=== PATIENT | male | born 1950 | race Caucasian/White ===

== ENCOUNTER 2023-01-01 16:58 | Emergency (ER) | payer MEDICARE ==
[2023-01-01 17:18] LABS: #Basophils 0.1 thou/uL (0.0-0.2); #Eosinphils 0.2 thou/uL (0.0-0.7); #Monocytes 0.9 thou/uL (0.11-0.59); #Neutrophils 5.7 thou/uL (1.40-6.50); %Basophils 0.9 % (0.0-1.0); %Eosinophils 2.5 % (0.0-10.0); %Lymphocytes 19.2 % (21.0-51.0); %Monocytes 10.7 % (0.0-10.0); %Neutrophils 66.5 % (42.0-75.0); Hematocrit 23.3 % (42.0-52.0); Hemoglobin 7.1 g/dL (14.0-18.0); Mean Corpuscular HGB CONC 30.5 g/dL (32.0-36.0); Mean Corpuscular Hemoglobin 26.9 pg (27.0-31.0); Mean Corpuscular Volume 88.3 fl (78.0-98.0); Mean Platelet Volume 9.1 fL (7.4-10.4); Platelet Count 369 10x3/uL (130-400); RBC Distribution Width 13.1 % (11.5-14.5); Red Blood Cell (RBC) Count 2.64 mill/uL (4.70-6.10); White Blood Cell (WBC) Count 8.5 10x3/uL (4.8-10.8)
[2023-01-01 17:46] LABS: ALT (SGPT) 20 U/L (8-55); AST (SGOT) 22 U/L (5-34); Albumin 3.2 g/dL (3.4-4.8); Alkaline Phosphatase 71 U/L (40-110); Anion Gap 10 mmol/L (10-20); BUN (Urea Nitrogen) 24 mg/dL (8.4-25.7); Bilirubin, Total Less than 0.2 mg/dL (0.2-1.2); Calc. Creatinine Clearance 0 mL/min (70-130); Calcium 7.8 mg/dL (7.8-10.44); Carbon Dioxide 23 mmol/L (23-31); Chloride 105 mmol/L (98-107); Estimated GFR 92; Globulin 1.6 g/dL (2.4-3.5); Glucose 114 mg/dL (80-115); Potassium 4.7 mmol/L (3.5-5.1); Protein, Total 4.8 g/dL (5.8-8.1); Sodium 133 mmol/L (136-145)
== END 2023-01-01 20:26 | disposition home or self-care (01) ==
LOC: ERS 16:58
DX: D64.9 Anemia, unspecified (principal); I10 Essential (primary) hypertension
CPT/HCPCS: 36430; 80053; 85025; 86850; 86900; 86901; 86920; P9016; 36415; 96360

== ENCOUNTER 2023-01-07 20:52 | Inpatient (IN) | payer MEDICARE ==
[2023-01-07] MEDS ORDERED: Pantoprazole 40 MG VIAL ONE ×2 (21:03→21:56)
[2023-01-07] MEDS ORDERED: Ondansetron PF 4 MG/2 ML Vial ONE (21:03)
[2023-01-07 21:10] LABS: #Monocytes 1.1 thou/uL (0.11-0.59); #Neutrophils 11.4 thou/uL (1.40-6.50); %Basophils 0.1 % (0.0-1.0); %Eosinophils 0.3 % (0.0-10.0); %Lymphocytes 12.4 % (21.0-51.0); %Monocytes 7.3 % (0.0-10.0); %Neutrophils 77.8 % (42.0-75.0); Hematocrit 12.8 % (42.0-52.0); Mean Corpuscular HGB CONC 29.7 g/dL (32.0-36.0); Mean Corpuscular Hemoglobin 27.3 pg (27.0-31.0); Mean Corpuscular Volume 92.1 fl (78.0-98.0); Platelet Count 238 10x3/uL (130-400); Red Blood Cell (RBC) Count 1.39 mill/uL (4.70-6.10); White Blood Cell (WBC) Count 14.6 10x3/uL (4.8-10.8)
[2023-01-07 21:23] LABS: Hemoglobin 3.8 g/dL (14.0-18.0)
[2023-01-07 21:30] LABS: INR-International Normal Ratio 1.2; Prothrombin Time 15.7 sec (12.0-14.7)
[2023-01-07 21:35] LABS: ALT (SGPT) 14 U/L (8-55); AST (SGOT) 14 U/L (5-34); Albumin 2.4 g/dL (3.4-4.8); Alkaline Phosphatase 43 U/L (40-110); Anion Gap 11 mmol/L (10-20); BUN (Urea Nitrogen) 42 mg/dL (8.4-25.7); Bilirubin, Total Less than 0.2 mg/dL (0.2-1.2); Calc. Creatinine Clearance 0 mL/min (70-130); Carbon Dioxide 18 mmol/L (23-31); Chloride 106 mmol/L (98-107); Estimated GFR 98; Globulin 1.1 g/dL (2.4-3.5); Glucose 164 mg/dL (80-115); Potassium 3.9 mmol/L (3.5-5.1); Protein, Total 3.5 g/dL (5.8-8.1); Sodium 131 mmol/L (136-145)
[2023-01-07 21:41] LABS: Calcium 6.7 mg/dL (7.8-10.44)
[2023-01-07] MEDS ORDERED: Acetaminophen 650 MG Suppository PR PRN (22:19)
[2023-01-07] MEDS ORDERED: Ondansetron ODT 4 MG TAB PO PRN (22:19)
[2023-01-07] MEDS ORDERED: Ondansetron PF 4 MG/2 ML Vial IVP PRN ×2 (22:19→22:30)
[2023-01-07] MEDS ORDERED: Acetaminophen 325 MG TAB PO PRN (22:30)
[2023-01-07] MEDS ORDERED: Ondansetron ODT 4 MG TAB SL PRN (22:30)
[2023-01-07] MEDS ORDERED: Pantoprazole 80 MG, Admixture Fee 1 EACH in Sodium Chloride 0.9% 100 ML IVPB SCH (22:30)
[2023-01-07] MEDS: Sodium Chloride 0.9% 1,000 ML IV SCH (23:45)
[2023-01-08 03:43] LABS: #Monocytes 1.2 thou/uL (0.11-0.59); #Neutrophils 15.5 thou/uL (1.40-6.50); %Basophils 0.2 % (0.0-1.0); %Eosinophils 0.1 % (0.0-10.0); %Lymphocytes 6.9 % (21.0-51.0); %Monocytes 6.6 % (0.0-10.0); %Neutrophils 85.4 % (42.0-75.0); Mean Corpuscular HGB CONC 33.1 g/dL (32.0-36.0); Mean Corpuscular Hemoglobin 27.9 pg (27.0-31.0); Platelet Count 177 10x3/uL (130-400); RBC Distribution Width 15.5 % (11.5-14.5); Red Blood Cell (RBC) Count 2.98 mill/uL (4.70-6.10); White Blood Cell (WBC) Count 18.1 10x3/uL (4.8-10.8)
[2023-01-08 04:01] LABS: Hemoglobin 8.3 g/dL (14.0-18.0)
[2023-01-08 04:02] LABS: Hematocrit 25.1 % (42.0-52.0); Mean Corpuscular Volume 84.2 fl (78.0-98.0)
[2023-01-08 04:04] LABS: Anion Gap 8 mmol/L (10-20); BUN (Urea Nitrogen) 34 mg/dL (8.4-25.7); Calc. Creatinine Clearance 85 mL/min (70-130); Carbon Dioxide 21 mmol/L (23-31); Chloride 109 mmol/L (98-107); Estimated GFR 103; Glucose 103 mg/dL (80-115); Potassium 4.2 mmol/L (3.5-5.1); Sodium 134 mmol/L (136-145)
[2023-01-08 04:08] LABS: Calcium 6.8 mg/dL (7.8-10.44)
[2023-01-08] MEDS ORDERED: Sodium Chloride 0.9% 500 ML IV SCH ×3 (05:45→12:00)
[2023-01-08 06:25] LABS: Hematocrit 21.8 % (42.0-52.0); Hemoglobin 7.3 g/dL (14.0-18.0)
[2023-01-08] MEDS ORDERED: PHENYLEPHRINE-NS 100 MCG/ML 10 ML SYRINGE ONE (07:45)
[2023-01-08] MEDS ORDERED: PROPOFOL 200 MG/20 ML VIAL ONE (07:45)
[2023-01-08] MEDS ORDERED: Succinylcholine 200 MG/10 ml SYRINGE FS ONE (07:45)
[2023-01-08] MEDS: Pantoprazole 40 MG VIAL IVP SCH ×2 (09:20→20:04)
[2023-01-08] MEDS: Sodium Chloride 0.9% 1,000 ML IV SCH ×2 (09:20→13:14)
[2023-01-08 11:48] LABS: Hematocrit 25.5 % (42.0-52.0); Hemoglobin 9.1 g/dL (14.0-18.0); Mean Corpuscular HGB CONC 35.7 g/dL (32.0-36.0); Mean Corpuscular Volume 84.2 fl (78.0-98.0); Mean Platelet Volume 10.1 fL (7.4-10.4); Platelet Count 158 10x3/uL (130-400); RBC Distribution Width 16.9 % (11.5-14.5); Red Blood Cell (RBC) Count 3.03 mill/uL (4.70-6.10); White Blood Cell (WBC) Count 20.2 10x3/uL (4.8-10.8)
[2023-01-08 14:50] LABS: Bilirubin Negative (Negative); Blood, Urine Moderate (Negative); Clarity Clear (Clear); Glucose, Urine (Dipstick) Negative (Negative); Ketone, Urine Negative (Negative); Leukocyte Negative (Negative); Nitrite Negative (Negative); Protein, Urine (Dipstick) Negative (Neg-Trace); Specific Gravity, Urine 1.028 (1.002-1.036); Urobilinogen 0.2 mg/dL (Less than 2)
[2023-01-08 15:09] LABS: CAUTI Indications for Culture Fever or rigors
[2023-01-08 15:10] LABS: Bacteria/HPF Rare-Few HPF (None Seen); Squamous Epithelial 0-3 HPF (0-3)
[2023-01-08 15:11] LABS: Urine Culture Reflex No No
[2023-01-09 03:57] LABS: #Basophils 0.1 thou/uL (0.0-0.2); #Eosinphils 0.3 thou/uL (0.0-0.7); #Monocytes 0.9 thou/uL (0.11-0.59); #Neutrophils 9.3 thou/uL (1.40-6.50); %Basophils 0.4 % (0.0-1.0); %Eosinophils 2.6 % (0.0-10.0); %Lymphocytes 8.8 % (21.0-51.0); %Monocytes 7.7 % (0.0-10.0); %Neutrophils 79.8 % (42.0-75.0); Hematocrit 23.4 % (42.0-52.0); Hemoglobin 7.5 g/dL (14.0-18.0); Mean Corpuscular HGB CONC 32.1 g/dL (32.0-36.0); Mean Corpuscular Hemoglobin 27.9 pg (27.0-31.0); Mean Platelet Volume 10.6 fL (7.4-10.4); Platelet Count 142 10x3/uL (130-400); RBC Distribution Width 17.3 % (11.5-14.5); Red Blood Cell (RBC) Count 2.69 mill/uL (4.70-6.10); White Blood Cell (WBC) Count 11.7 10x3/uL (4.8-10.8)
[2023-01-09 04:16] LABS: Anion Gap 6 mmol/L (10-20); BUN (Urea Nitrogen) 20 mg/dL (8.4-25.7); Calc. Creatinine Clearance 82 mL/min (70-130); Carbon Dioxide 20 mmol/L (23-31); Chloride 113 mmol/L (98-107); Estimated GFR 101; Glucose 99 mg/dL (80-115); Potassium 3.9 mmol/L (3.5-5.1); Sodium 135 mmol/L (136-145)
[2023-01-09 04:32] LABS: Calcium 6.8 mg/dL (7.8-10.44)
[2023-01-09] MEDS ORDERED: Calcium Chloride 1 GM/10 ML Abboject SYRINGE IVP SCH (04:45)
[2023-01-09] MEDS: Sodium Chloride 0.9% 1,000 ML IV SCH (04:50)
[2023-01-09] MEDS: Pantoprazole 40 MG VIAL IVP SCH (08:30)
[2023-01-09] MEDS ORDERED: CALCIUM GLUC 1 GM/NS 50 ML 1 GM in Premix 1 BAG IVPB SCH (08:45)
[2023-01-10 04:59] LABS: #Eosinphils 0.1 thou/uL (0.0-0.7); #Monocytes 0.6 thou/uL (0.11-0.59); #Neutrophils 7.7 thou/uL (1.40-6.50); %Basophils 0.3 % (0.0-1.0); %Lymphocytes 6.5 % (21.0-51.0); %Monocytes 6.5 % (0.0-10.0); Hematocrit 26.1 % (42.0-52.0); Hemoglobin 8.4 g/dL (14.0-18.0); Mean Corpuscular HGB CONC 32.2 g/dL (32.0-36.0); Mean Platelet Volume 10.8 fL (7.4-10.4); Platelet Count 172 10x3/uL (130-400); RBC Distribution Width 17.3 % (11.5-14.5); White Blood Cell (WBC) Count 9.1 10x3/uL (4.8-10.8)
[2023-01-10 07:25] LABS: BUN (Urea Nitrogen) 18 mg/dL (8.4-25.7); Calc. Creatinine Clearance 90 mL/min (70-130); Calcium 7.3 mg/dL (7.8-10.44); Carbon Dioxide 20 mmol/L (23-31); Chloride 109 mmol/L (98-107); Estimated GFR 101; Glucose 100 mg/dL (80-115); Potassium 3.7 mmol/L (3.5-5.1); Sodium 135 mmol/L (136-145)
[2023-01-10 08:37] LABS: Anion Gap 10 mmol/L (10-20)
[2023-01-10] MEDS ORDERED: Iopamidol-370 76% 500 ML MDV (1 ML CHARGE) ONE (10:03)
[2023-01-10] MEDS ORDERED: Lactated Ringer's 1,000 ML IV SCH (16:30)
[2023-01-10] MEDS ORDERED: Heparin 10,000 UNITS/ 10 ML VIAL SLOW IVP SCH (18:30)
[2023-01-10 18:56] LABS: Hematocrit 27.1 % (42.0-52.0); Hemoglobin 8.8 g/dL (14.0-18.0); Platelet Count 161 10x3/uL (130-400)
[2023-01-10] MEDS ORDERED: Calcium Gluc 4.6 MEQ/10 ML (100 MG/ML) SLOW IVP SCH (19:02)
[2023-01-10] MEDS: Heparin 25,000 units/D5W 500 ML IVPB SCH (19:52)
[2023-01-10] MEDS: Pantoprazole 40 MG VIAL IVP SCH (21:12)
[2023-01-10 22:12] LABS: Hematocrit 31.6 % (42.0-52.0); Hemoglobin 9.7 g/dL (14.0-18.0)
[2023-01-10] MEDS: Acetaminophen 325 MG TAB PO PRN (23:22)
[2023-01-11] MEDS ORDERED: Lactated Ringer's 500 ML IV SCH (02:15)
[2023-01-11] MEDS: Lactated Ringer's 1,000 ML IV SCH ×4 (02:18→18:30)
[2023-01-11] MEDS ORDERED: Heparin 10,000 UNITS/ 10 ML VIAL SLOW IVP SCH (08:45)
[2023-01-11 08:50] LABS: #Monocytes 0.5 thou/uL (0.11-0.59); #Neutrophils 8.5 thou/uL (1.40-6.50); %Basophils 0.3 % (0.0-1.0); %Eosinophils 0.2 % (0.0-10.0); %Lymphocytes 6.7 % (21.0-51.0); %Monocytes 5.3 % (0.0-10.0); %Neutrophils 86.5 % (42.0-75.0); Hematocrit 29.8 % (42.0-52.0); Hemoglobin 9.6 g/dL (14.0-18.0); Mean Corpuscular HGB CONC 32.2 g/dL (32.0-36.0); Mean Corpuscular Hemoglobin 28.2 pg (27.0-31.0); Mean Corpuscular Volume 87.4 fl (78.0-98.0); Mean Platelet Volume 11.2 fL (7.4-10.4); RBC Distribution Width 17.2 % (11.5-14.5); Red Blood Cell (RBC) Count 3.41 mill/uL (4.70-6.10); White Blood Cell (WBC) Count 9.8 10x3/uL (4.8-10.8)
[2023-01-11] MEDS ORDERED: FLU VACC QS2023(65UP)/MF59C/PF 60 MCG/0.5 ML SYRINGE IM ONE (09:00)
[2023-01-11] MEDS: Pantoprazole 40 MG VIAL IVP SCH ×2 (09:00→20:24)
[2023-01-11 09:18] LABS: Platelet Count 104 10x3/uL (130-400)
[2023-01-11 09:21] LABS: PTT 230.8 sec (22.9-36.1)
[2023-01-11 12:11] LABS: Anion Gap 11 mmol/L (10-20); BUN (Urea Nitrogen) 18 mg/dL (8.4-25.7); Calc. Creatinine Clearance 90 mL/min (70-130); Carbon Dioxide 21 mmol/L (23-31); Chloride 107 mmol/L (98-107); Estimated GFR 101; Glucose 108 mg/dL (80-115); Sodium 135 mmol/L (136-145)
[2023-01-11] MEDS: Acetaminophen 325 MG TAB PO PRN ×2 (12:55→20:23)
[2023-01-11] MEDS ORDERED: Calcium Gluconate 4.6 MEQ in Sodium Chloride 0.9% 100 ML IVPB SCH (13:55)
[2023-01-11] MEDS ORDERED: CALCIUM GLUC 1 GM/NS 50 ML 1 GM in Premix 1 BAG IVPB SCH (15:30)
[2023-01-11] MEDS: Heparin 25,000 units/D5W 500 ML IVPB SCH (18:30)
[2023-01-11] MEDS ORDERED: Ipratropium/Albuterol 3 ML NEB NEB PRN (18:42)
[2023-01-11] MEDS ORDERED: Morphine 2 MG/ML VIAL SLOW IVP PRN (18:43)
[2023-01-11 19:27] LABS: PTT 125.9 sec (22.9-36.1)
[2023-01-11] MEDS ORDERED: Vancomycin (BATCH) 1.25 GM in Premix 1 BAG IVPB SCH (21:30)
[2023-01-11] MEDS ORDERED: Cefepime 1 GM in Sodium Chloride 0.9% 100 ML IVPB SCH (22:00)
[2023-01-11] MEDS ORDERED: Vancomycin 1 GM in Premix 1 BAG IVPB SCH (22:00)
[2023-01-12 03:40] LABS: #Monocytes 0.3 thou/uL (0.11-0.59); #Neutrophils 3.8 thou/uL (1.40-6.50); %Basophils 0.6 % (0.0-1.0); %Eosinophils 0.4 % (0.0-10.0); %Lymphocytes 14.8 % (21.0-51.0); %Monocytes 5.5 % (0.0-10.0); %Neutrophils 77.3 % (42.0-75.0); Hematocrit 25.2 % (42.0-52.0); Hemoglobin 7.9 g/dL (14.0-18.0); Mean Corpuscular HGB CONC 31.3 g/dL (32.0-36.0); Mean Corpuscular Hemoglobin 27.7 pg (27.0-31.0); Mean Corpuscular Volume 88.4 fl (78.0-98.0); Mean Platelet Volume 10.9 fL (7.4-10.4); RBC Distribution Width 16.9 % (11.5-14.5); Red Blood Cell (RBC) Count 2.85 mill/uL (4.70-6.10); White Blood Cell (WBC) Count 4.9 10x3/uL (4.8-10.8)
[2023-01-12 03:56] LABS: Platelet Count 126 10x3/uL (130-400)
[2023-01-12 04:05] LABS: Anion Gap 10 mmol/L (10-20); BUN (Urea Nitrogen) 16 mg/dL (8.4-25.7); Calc. Creatinine Clearance 85 mL/min (70-130); Calcium 7.1 mg/dL (7.8-10.44); Carbon Dioxide 24 mmol/L (23-31); Chloride 107 mmol/L (98-107); Estimated GFR 99; Glucose 107 mg/dL (80-115); Potassium 3.9 mmol/L (3.5-5.1); Sodium 137 mmol/L (136-145)
[2023-01-12] MEDS: Cefepime 2 GM in Sodium Chloride 0.9% 100 ML IVPB SCH ×2 (09:25→22:51)
[2023-01-12] MEDS: Pantoprazole 40 MG VIAL IVP SCH ×2 (09:26→22:52)
[2023-01-12] MEDS: Vancomycin 1 GM in Premix 1 BAG IVPB SCH ×2 (09:26→22:51)
[2023-01-12] MEDS: Lactated Ringer's 1,000 ML IV SCH (09:31)
[2023-01-12] MEDS: Heparin 25,000 units/D5W 500 ML IVPB SCH (10:34)
[2023-01-12 18:49] LABS: Hematocrit 25.3 % (42.0-52.0); Hemoglobin 7.9 g/dL (14.0-18.0); Platelet Count 144 10x3/uL (130-400)
[2023-01-13 03:53] LABS: #Eosinphils 0.2 thou/uL (0.0-0.7); #Monocytes 0.6 thou/uL (0.11-0.59); #Neutrophils 3.4 thou/uL (1.40-6.50); %Basophils 0.6 % (0.0-1.0); %Eosinophils 3.6 % (0.0-10.0); %Lymphocytes 18.4 % (21.0-51.0); %Monocytes 10.9 % (0.0-10.0); Hematocrit 25.3 % (42.0-52.0); Mean Corpuscular HGB CONC 31.6 g/dL (32.0-36.0); Mean Corpuscular Hemoglobin 27.4 pg (27.0-31.0); Mean Corpuscular Volume 86.6 fl (78.0-98.0); Mean Platelet Volume 11.4 fL (7.4-10.4); Platelet Count 157 10x3/uL (130-400); RBC Distribution Width 16.5 % (11.5-14.5); Red Blood Cell (RBC) Count 2.92 mill/uL (4.70-6.10); White Blood Cell (WBC) Count 5.2 10x3/uL (4.8-10.8)
[2023-01-13 04:19] LABS: Anion Gap 9 mmol/L (10-20); BUN (Urea Nitrogen) 15 mg/dL (8.4-25.7); Calc. Creatinine Clearance 94 mL/min (70-130); Carbon Dioxide 24 mmol/L (23-31); Chloride 105 mmol/L (98-107); Estimated GFR 102; Glucose 108 mg/dL (80-115); Potassium 3.7 mmol/L (3.5-5.1); Sodium 134 mmol/L (136-145)
[2023-01-13 04:44] LABS: PTT 144.4 sec (22.9-36.1)
[2023-01-13] MEDS: Lactated Ringer's 1,000 ML IV SCH ×2 (06:06→17:01)
[2023-01-13] MEDS: Pantoprazole 40 MG VIAL IVP SCH ×2 (09:14→20:49)
[2023-01-13] MEDS: Cefepime 2 GM in Sodium Chloride 0.9% 100 ML IVPB SCH (09:14)
[2023-01-13 09:44] LABS: Vancomycin, Trough 11.4 ug/mL
[2023-01-13] MEDS: Vancomycin 1 GM in Premix 1 BAG IVPB SCH (11:13)
[2023-01-13] MEDS: Heparin 25,000 units/D5W 500 ML IVPB SCH (17:01)
[2023-01-14 02:24] LABS: Hemoglobin 7.7 g/dL (14.0-18.0); Mean Corpuscular HGB CONC 30.8 g/dL (32.0-36.0); Mean Corpuscular Hemoglobin 27.3 pg (27.0-31.0); Mean Corpuscular Volume 88.7 fl (78.0-98.0); Mean Platelet Volume 10.6 fL (7.4-10.4); Platelet Count 173 10x3/uL (130-400); RBC Distribution Width 16.3 % (11.5-14.5); Red Blood Cell (RBC) Count 2.82 mill/uL (4.70-6.10); White Blood Cell (WBC) Count 5.1 10x3/uL (4.8-10.8)
[2023-01-14 02:55] LABS: Delete Auto Diff?? YES; Manual Diff?? YES
[2023-01-14 02:57] LABS: Anion Gap 10 mmol/L (10-20); BUN (Urea Nitrogen) 15 mg/dL (8.4-25.7); Calcium 7.2 mg/dL (7.8-10.44); Carbon Dioxide 24 mmol/L (23-31); Chloride 108 mmol/L (98-107); Glucose 104 mg/dL (80-115); Potassium 3.8 mmol/L (3.5-5.1); Sodium 138 mmol/L (136-145)
[2023-01-14 03:08] LABS: Calc. Creatinine Clearance 91 mL/min (70-130); Estimated GFR 101
[2023-01-14 03:33] LABS: Anisocytosis SLIGHT = 6-15 cells HPF (0-5); Band 3 % (5-11); Burr Cells SLIGHT = 2-5 cells HPF (0-1); CellaVision Operator ID LAB.JMM; Elliptocytes SLIGHT = 2-5 cells HPF (0-1); Eosinophils 3 % (0-10); Large Platelets 7.1 % (0-5); Lymphocytes 8 % (21-51); Metamyelocyte 1 % (0-0); Monocytes 5 % (0-10); Neutrophil 80 % (42-75); Platelet Adequacy Comment Platelets Normal; Polychromasia SLIGHT = 2-3 cells HPF (0-2); Smudge Cells 31.6 %; Total Cell Count 98
[2023-01-14] MEDS: Pantoprazole 40 MG VIAL IVP SCH ×2 (09:40→20:19)
[2023-01-14] MEDS: Lactated Ringer's 1,000 ML IV SCH (09:40)
[2023-01-14] MEDS: Heparin 25,000 units/D5W 500 ML IVPB SCH (12:14)
[2023-01-14 18:56] LABS: Hematocrit 26.8 % (42.0-52.0); Hemoglobin 8.2 g/dL (14.0-18.0); Platelet Count 216 10x3/uL (130-400)
[2023-01-15] MEDS: Pantoprazole 40 MG VIAL IVP SCH (08:54)
[2023-01-15 13:00] LABS: INR-International Normal Ratio 1.1; Prothrombin Time 14.3 sec (12.0-14.7)
[2023-01-15] MEDS ORDERED: [UNRECOGNIZED DRUG - OTHER] IVPB PRN (13:25)
[2023-01-15] MEDS ORDERED: WARFARIN IVPB PRN (13:25)
[2023-01-15] MEDS: Heparin 25,000 units/D5W 500 ML IVPB SCH (13:35)
[2023-01-15] MEDS: Warfarin Sodium 5 MG TAB PO SCH (18:21)
[2023-01-16 07:02] LABS: INR-International Normal Ratio 1.2; Prothrombin Time 15.7 sec (12.0-14.7)
[2023-01-16 07:03] LABS: PTT 64.3 sec (22.9-36.1)
[2023-01-16] MEDS ORDERED: Heparin 10,000 UNITS/ 10 ML VIAL SLOW IVP SCH (08:15)
[2023-01-16] MEDS: Heparin 25,000 units/D5W 500 ML IVPB SCH (08:59)
[2023-01-16 09:07] VITALS: BMI 20.9
[2023-01-16 09:13] LABS: Hematocrit 26.7 % (42.0-52.0); Hemoglobin 8.1 g/dL (14.0-18.0); Mean Corpuscular HGB CONC 30.3 g/dL (32.0-36.0); Mean Corpuscular Hemoglobin 27.5 pg (27.0-31.0); Mean Corpuscular Volume 90.5 fl (78.0-98.0); Mean Platelet Volume 11.5 fL (7.4-10.4); Platelet Count 230 10x3/uL (130-400); RBC Distribution Width 16.3 % (11.5-14.5); Red Blood Cell (RBC) Count 2.95 mill/uL (4.70-6.10); White Blood Cell (WBC) Count 6.9 10x3/uL (4.8-10.8)
[2023-01-16 09:15] LABS: Delete Auto Diff?? YES; Manual Diff?? YES
[2023-01-16 10:31] LABS: Anisocytosis SLIGHT = 6-15 cells HPF (0-5); Band 10 % (5-11); CellaVision Operator ID lab.dlt; Hypochromia SLIGHT = 6-15 cells HPF (0-5); Large Platelets 15.8 % (0-5); Lymphocytes 5 % (21-51); Macrocytosis SLIGHT = 6-15 cells HPF (0-5); Monocytes 6 % (0-10); Neutrophil 78 % (42-75); Nucleated RBC (Manual Ct) 1 % (0); Ovalocytes SLIGHT = 2-5 cells HPF (0-1); Platelet Adequacy Comment Platelets Normal; Poikilocytosis SLIGHT = 6-15 cells HPF (0-5); Polychromasia SLIGHT = 2-3 cells HPF (0-2); Schistocytes SLIGHT = 2-5 cells HPF (0-1); Smudge Cells 19.8 %; Total Cell Count 101
[2023-01-16] MEDS: Warfarin Sodium 5 MG TAB PO SCH (17:39)
[2023-01-16 19:44] LABS: Hematocrit 26.8 % (42.0-52.0); Hemoglobin 8.1 g/dL (14.0-18.0); Platelet Count 281 10x3/uL (130-400)
[2023-01-17] MEDS: Heparin 25,000 units/D5W 500 ML IVPB SCH (04:55)
[2023-01-17 06:05] LABS: Hematocrit 28.3 % (42.0-52.0); Hemoglobin 8.6 g/dL (14.0-18.0); Platelet Count 287 10x3/uL (130-400)
[2023-01-17 06:21] LABS: INR-International Normal Ratio 1.6; Prothrombin Time 20.1 sec (12.0-14.7)
[2023-01-17] MEDS: Warfarin Sodium 5 MG TAB PO SCH (17:35)
[2023-01-18] MEDS: Heparin 25,000 units/D5W 500 ML IVPB SCH (00:59)
[2023-01-18 06:44] LABS: Hematocrit 29.8 % (42.0-52.0); Hemoglobin 8.9 g/dL (14.0-18.0); Platelet Count 369 10x3/uL (130-400)
[2023-01-18 06:58] LABS: INR-International Normal Ratio 2.2; Prothrombin Time 25.5 sec (12.0-14.7)
[2023-01-18 07:34] LABS: PTT 184.7 sec (22.9-36.1)
[2023-01-18] MEDS: Warfarin Sodium 5 MG TAB PO SCH (17:45)
[2023-01-18 19:04] VITALS: BP 156/82; TEMP 97.7
== END 2023-01-18 18:17 | disposition home or self-care (01) | DRG 380 ==
LOC: ERS 20:52 → CCU 22:12 → T4-B 01-09 10:30 → CCU 01-10 17:49 → IMCU/EMU 01-12 15:18 → T4-B 01-15 16:31
PROVIDERS: ADMIT Student in an Organized Health Care Education/Training Program; ATTEND Emergency Medicine
PROC: 0D9670Z Drainage of Stomach with Drainage Device, Via Natural or Artificial Opening (ICD-10-PCS; 2023-01-07)
PROC: 30233N1 Transfusion of Nonautologous Red Blood Cells into Peripheral Vein, Percutaneous Approach (ICD-10-PCS; 2023-01-07)
PROC: 0DB58ZX Excision of Esophagus, Via Natural or Artificial Opening Endoscopic, Diagnostic (ICD-10-PCS; principal; 2023-01-08)
PROC: 5A0945A Assistance with Respiratory Ventilation, 24-96 Consecutive Hours, High Flow/Velocity Cannula (ICD-10-PCS; 2023-01-10)
PROC: 3E03329 Introduction of Other Anti-infective into Peripheral Vein, Percutaneous Approach (ICD-10-PCS; 2023-01-11)
DX: K22.11 Ulcer of esophagus with bleeding (principal); A41.9 Sepsis, unspecified organism; I26.92 Saddle embolus of pulmonary artery without acute cor pulmonale; J96.01 Acute respiratory failure with hypoxia; R57.8 Other shock; D62 Acute posthemorrhagic anemia; E87.1 Hypo-osmolality and hyponatremia; E87.20 Acidosis, unspecified; Z66 Do not resuscitate; I10 Essential (primary) hypertension; E83.51 Hypocalcemia; E88.09 Other disorders of plasma-protein metabolism, not elsewhere classified; K44.9 Diaphragmatic hernia without obstruction or gangrene; K25.9 Gastric ulcer, unspecified as acute or chronic, without hemorrhage or perforation
CPT/HCPCS: 36415; 36430; 43762; 71045; 71275; 80048; 80053; 80202; 81001; 82140; 83605; 83880; 85014; 85018; 85025; 85049; 85610; 85730; 86140; 86850; 86900; 86901; 87040; 88305; 88341; 88342; 93005; 93306; 93970; 96361; 96374; 96375; 96376; C9113; J0612; J0613; J0692; J1644; J2272; J2405; J2704; J3370; J3370-JW; J3490; J7030; J7050; J7120; P9016; Q9967